=== PATIENT | male | born 1950 | race Caucasian/White ===

== ENCOUNTER 2023-09-09 12:25 | Emergency (ER) | payer MEDICAID, OTHER ==
[~2023-09-09] VITALS: Ht 165.1 cm; Wt 80.3 kg
[2023-09-09] MEDS ORDERED: IV NS 0.9% 500 ML BAG IV ONE (13:00)
[2023-09-09 13:03] LABS: BASOPHILS % (AUTO) 0.9 % (0.0-2.0); EOSINOPHILS # (AUTO) 0.2 K/uL (0.0-0.7); EOSINOPHILS % (AUTO) 3.5 % (0.0-6.0); HEMATOCRIT 31 % (39-51); HEMOGLOBIN 10.8 g/dL (13.5-17.5); LYMPHOCYTES # (AUTO) 1.1 K/uL (0.8-4.8); LYMPHOCYTES % (AUTO) 23.3 % (20.0-44.0); MEAN CORPUSCULAR HEMOGLOBIN 32 PG (26.0-33.0); MEAN CORPUSCULAR HGB CONC 35 g/dl (31.0-36.0); MEAN CORPUSCULAR VOLUME 93 fL (80-96); MONOCYTES # (AUTO) 0.3 K/uL (0.1-1.30); MONOCYTES % (AUTO) 6.9 % (2.0-12.0); NEUTROPHILS # (AUTO) 3.1 K/uL (1.8-8.9); NEUTROPHILS % (AUTO) 65.4 % (43.0-81.0); PLATELET COUNT (AUTO) 176 K/uL (150-450); RED BLOOD CELL COUNT(AUTO) 3.36 MIL/uL (4.5-6.0); RED CELL DISTRIBUTION WIDTH 13.7 % (11.5-15.0); WHITE BLOOD COUNT (AUTO) 4.8 K/uL (4.3-11.0)
[2023-09-09 13:26] LABS: INR 1.02 (0.91-1.10); PARTIAL THROMBOPLASTIN TIME 27.6 SEC (24.3-34.3); PROTHROMBIN TIME 10.8 SECS (9.2-11.1)
[2023-09-09 13:33] LABS: ALANINE AMINOTRANSFERASE 14 U/L (12-78); ALBUMIN 3.7 g/dL (3.4-5.0); ALKALINE PHOSPHATASE 95 U/L (46-116); ASPARTATE AMINOTRANSFERASE 14 U/L (15-37); BILIRUBIN,DIRECT 0.1 mg/dL (0.0-0.2); BILIRUBIN,TOTAL 0.4 mg/dL (0.2-1.0); CALCIUM, SERUM 8.8 mg/dL (8.5-10.1); CARBON DIOXIDE 27 mmol/L (21-32); CHLORIDE 104 mmol/L (98-107); CREATININE 1.2 mg/dL (0.6-1.3); GLUCOSE 222 mg/dL (74-106); POTASSIUM 4.7 mmol/L (3.5-5.1); SODIUM SERUM 137 mmol/L (136-145); TOTAL PROTEIN, SERUM 7.2 g/dL (6.4-8.2)
[2023-09-09 13:43] LABS: UREA NITROGEN, BLOOD 16 mg/dL (7-18)
[2023-09-09 15:11] LABS: APPEARANCE,URINE CLEAR (CLEAR); BILIRUBIN,URINE NEGATIVE (NEGATIVE); BLOOD, URINE TRACE-INTA Ery/uL (NEGATIVE); COLOR,URINE YELLOW (YELLOW); KETONES,URINE NEGATIVE (NEGATIVE); LEUKOCYTE ESTERASE ,URINE NEGATIVE (NEGATIVE); NITRITE, URINE NEGATIVE (NEGATIVE); PROTEIN,URINE 3+ mg/dl (NEGATIVE); UGLUCOSE TRACE mg/dL (NEGATIVE); UROBILINOGEN,URINE 0.2 EU/dL (0.2)
[2023-09-09 15:13] VITALS: BP 134/60; TEMP 98.5; O2SAT 99
[2023-09-09 15:55] LABS: ADD URINE CULTURE NO; BACTERIA,URINE None seen /HPF (None Seen); SQUAMOUS EPITHELIAL CELL,UR 0-2 /HPF (None Seen); WBC,URINE 0-2 /HPF (0-3)
[2023-09-10] MEDS ORDERED: AMOX500C2 PO (16:26)
== END 2023-09-09 15:13 | disposition home or self-care (01) ==
LOC: ER 12:33
DX: S06.0XAA Concussion with loss of consciousness status unknown, initial encounter (principal); S00.01XA Abrasion of scalp, initial encounter; E11.65 Type 2 diabetes mellitus with hyperglycemia; R42 Dizziness and giddiness; I10 Essential (primary) hypertension; W18.30XA Fall on same level, unspecified, initial encounter; Y93.89 Activity, other specified; Y92.89 Other specified places as the place of occurrence of the external cause; Y99.8 Other external cause status
CPT/HCPCS: 99285; 72125; 71045; 93005; 70450; 85025; 80048; 80076; 81001; 36415; 84484; 85730; 86850; 82962; J7040

== ENCOUNTER 2023-09-10 15:19 | Emergency (ER) | payer OTHER ==
[~2023-09-10] VITALS: Ht 175.3 cm; Wt 74.4 kg
[2023-09-10] MEDS ORDERED: AMOX500C2 PO (16:26)
[2023-09-10 16:33] VITALS: BP 168/78; TEMP 98; O2SAT 98
== END 2023-09-10 16:34 | disposition home or self-care (01) ==
LOC: ER 15:44
DX: I10 Essential (primary) hypertension (principal); K04.7 Periapical abscess without sinus; W18.30XA Fall on same level, unspecified, initial encounter; Y93.89 Activity, other specified; Y92.89 Other specified places as the place of occurrence of the external cause; Y99.8 Other external cause status